=== PATIENT | male | born 1955 | race American Indian/Alaskan Native ===

== ENCOUNTER 2018-01-14 07:23 | Day surgery (SDC) | payer BC ==
[2018-01-14 07:53] VITALS: BMI 23.1
[2018-01-14 07:58] VITALS: O2SAT 100
[2018-01-14] MEDS ORDERED: Propofol 10 mg/ml Inj (20 ML) ONE (10:27)
[2018-01-14] MEDS ORDERED: Lactated Ringer's 500 ML IV ONE ×2 (10:28)
[2018-01-14] MEDS ORDERED: Lactated Ringer's 500 ML IV SCH (10:30)
[2018-01-14] MEDS ORDERED: Midazolam 2 MG/2 ML VIAL ONE (10:32)
[2018-01-14 11:38] VITALS: TEMP 97
[2018-01-14 13:01] VITALS: BP 151/80; PULSE 53; RESP 10
== END 2018-01-14 12:10 | disposition home or self-care (01) ==
LOC: C.ENDO 07:23
PROVIDERS: ATTEND Internal Medicine Gastroenterology
DX: D12.5 Benign neoplasm of sigmoid colon (principal); K64.8 Other hemorrhoids
CPT/HCPCS: 45380; 88305; J2250; J2704; J7120